=== PATIENT | female | born 1975 | race Caucasian/White ===

== ENCOUNTER 2018-11-30 07:34 | Observation (INO) ==
[2018-11-30] MEDS ORDERED: Isovue-370 500 ML BOTTLE IVP ONE (08:47)
[2018-11-30] MEDS ORDERED: Aspirin 81 MG TAB.CHEW PO ONE (08:49)
[2018-11-30] MEDS ORDERED: *HR* FentaNYL (PF) 100 MCG/2 ML VIAL IVP ONE (08:49)
[2018-11-30] MEDS ORDERED: Nitroglycerin 0.4 MG TAB.SUBL SL PRN (08:52)
--- NOTE | 2018-11-30 08:57 | Emergency Department Note ---
Disposition Clinical Impression: Cellulitis of right toe Chest pain Qualifiers: Chest pain type: unspecified Qualified Code(s): R07.9 - Chest pain, unspecified Headache Qualifiers: Headache type: unspecified Headache chronicity pattern: unspecified pattern Intractability: not intractable Qualified Code(s): R51 - Headache Disposition: Admitted As Inpatient Condition: Good Time of Disposition: 13:59 General Adult HPI - General Chief complaint: ED Extremity Problem,Nontraumatic Stated complaint: right toe problem, n/v Time Seen by Provider: 11/30/18 08:30 Source: patient, family Limitations: no limitations Nursing Notes Reviewed: Yes Vital Signs Reviewed: Yes - History of Present Illness HPI Narrative: Patient is a 43-year-old female with past medical history of hypertension, iron deficiency anemia, presenting with a chief complaint of right toe pain and chest pain. She states 5-6 years ago, she followed up with a brick burner head for ingrown toenails bilaterally. She has not followed up since. When an half weeks ago, she states her right toenail started to grow so she clipped it. One week ago, s he developed right toe swelling and redness. She also complains of right toe pain. For the past couple of days, she states the pain has been worsening and radiating into her right foot to the ankle. She states the redness and swelling is also worsening. There is also purulent drainage as well as some necrotic tissue where she clipped her toenail. Overnight, she complains of fevers and chills as well as nausea and several episodes of nonbilious nonbloody vomiting. She woke up this morning with chest pressure. She states her chest feels tight associated with some shortness of breath. She still felt nauseous. This gave her a headache as well. She feels like her chest and head are throbbing. She has never felt this before. Denies a cardiac history. She has been taking ibuprofen and Tylenol every 4 hours without improvement. Pain Scale: 7 - Related Data Home Medications Medication Instructions Recorded Confirmed Duloxetine HCl [Cymbalta] 60 mg PO DAILY 12/15/17 11/30/18 Estrogens, Conjugated [Premarin] 0.625 mg PO DAILY 12/15/17 11/30/18 Promethazine [Phenergan] 12.5 mg PO Q6HR PRN 12/15/17 11/30/18 Tizanidine HCl [Zanaflex] 4 mg PO TID PRN 12/15/17 11/30/18 amLODIPine [Norvasc] 5 mg PO DAILY 12/15/17 11/30/18 Loperamide [Imodium] 2 mg PO AD PRN 03/18/18 11/30/18 Baclofen 20 mg PO TID 06/17/18 11/30/18 Previous Rx's Medication Instructions Recorded Aspirin Enteric Coated [Aspirin EC] 81 mg PO DAILY #30 tablet. 11/30/18 Doxycycline Hyclate 100 mg PO BID #14 tablet 11/30/18 Allergies Allergy/AdvReac Type Severity Reaction Status Date / Time No Known Allergies Allergy Verified 11/30/18 07:37 All systems ED: reviewed and negative except as stated. Review of Systems: As Per HPI Constitutional: Reports: fever, chills Cardiovascular: Reports: chest pain. Denies: palpitations Respiratory: Reports: dyspnea. Denies: cough Gastrointestinal: Reports: abdominal pain, nausea, vomiting. Denies: diarrhea Genitourinary: Denies: dysuria Musculoskeletal: Reports: other (right toe pain) Integumentary: Reports: other (right toe drainage and erythema) Neurological: Reports: headache. Denies: weakness, numbness Past Medical History - Past Medical History Attestation: Yes The following information was validated with the patient. Source: patient Medical history: Reports: hypertension Psychiatric history: Reports: no psych history RETAIL REPRESENTATIVE history: Reports: no RETAIL REPRESENTATIVE history - Social History Smoking Status: Never smoker Smokeless Tobacco Status: No Alcohol use: Reports: none Drug use: Reports: none Physical Exam - General Limitations: no limitations General appearance: alert, in no apparent distress - Head Head exam: atraumatic, normocephalic - Eye Eye exam: Present: normal appearance, EOMI - ENT ENT exam: normal exam, normal oropharynx - Neck Neck exam: Present: normal inspection, trachea midline - Chest Chest inspection: Present: normal inspection, symmetric chest wall rise. Absent: tenderness - Respiratory Respiratory exam: Present: normal lung sounds bilaterally. Absent: respiratory distress, wheezes - Cardiovascular Cardiovascular exam: Present: regular rate, normal rhythm, normal heart sounds, other (bilateral radial pulses equal) - Abdominal Exam Abdominal exam: Present: soft, Non-Tender. Absent: distention - Extremities Exam Extremities exam: Present: normal capillary refill, other (No right toenail, necrotic tissue with purulent drainage on the distal portion of the right toe and the toenail bed with surrounding area of erythema and swelling to the right metatarsal, significant tenderness to palpation of the right toe and right foot, full range of motion). Absent: pedal edema - Neurological Exam Neurological exam: Present: alert, oriented X3. Absent: motor sensory deficit - Psychiatric Psychiatric exam: Present: normal affect, normal mood - Skin Skin exam: Present: warm. Absent: diaphoresis, pallor Course Vital Signs Temperature 98.0 F 11/30/18 07:35 Pulse Rate 70 11/30/18 07:35 Respiratory Rate 16 11/30/18 07:35 Blood Pressure 152/96 11/30/18 07:35 O2 Sat by Pulse Oximetry 97 11/30/18 07:35 Temperature 98.0 F 11/30/18 07:35 Pulse Rate 68 11/30/18 10:53 Respiratory Rate 16 11/30/18 10:53 Blood Pressure 168/107 11/30/18 10:53 O2 Sat by Pulse Oximetry 98 11/30/18 10:53 Oxygen Delivery Oxygen Delivery Room Air Medical Decision Making - MDM Narrative Medical decision making narrative: Patient is presenting with signs and symptoms concerning for right toe cellulitis. We will obtain CT with contrast of the right foot to evaluate for osteomyelitis. We will also obtain septic workup and check lactate, blood cult ures, CBC, BMP. We will give her fentanyl for pain. Patient is also complaining of chest pressure and tightness associated with shortness of breath and nausea and vomiting. She has history of hypertension, no family history of coronary artery disease. She has no history of stent placements. We will obtain troponin. We will give her aspirin and nitroglycerin. EKG shows dynamic changes compared to her old EKG. No ST elevation or depression. She will require admission for ACS evaluation. 11:00 CT of her foot shows no acute osseous abnormality. There is concern for osteo-, MRI may be helpful per radiology report. There is no fluid collection or abscess noted. Will give the patient Rocephin and vancomycin. Initial troponin is less than 0.03. Chest x-ray shows no acute cardiopulmonary abnormality. Patient had some improvement with the nitroglycerin with the chest pain however it did make her headache worse. Acetaminophen will be given. She will require admission for ACS workup as she does have EKG dynamic changes compared to her old EKG. 13:30 The patient was accepted by hospitalist for admission. He was advised the patient be admitted however the patient and her wanted to go home. Had a long conversation with the patient that it is our advice to be admitted. They then changed their mind that they wanted to be admitted for further cardiac workup and IV antibiotics for her right toe cellulitis. The patient remains stable and will be admitted for further ACS workup as well as management of her right toe cellulitis. - Medical Records Medical records reviewed: Yes I reviewed the patient's medical records. - Lab Data Lab results reviewed: Yes I reviewed the patient's lab results. Result diagrams: 11/30/18 09:00 11/30/18 09:00 Lab Results 11/30/18 11/30/18 11/30/18 Range/Units 09:00 09:00 09:00 WBC 5.0 (4.3-11.1) K/mcL RBC 4.68 (3.82-4.97) M/mcL Hgb 15.3 (11.5-15.4) g/dL Hct 45.1 H (35.3-44.9) % MCV 96.4 (83.0-100.0) fL MCH 32.7 (28.0-33.3) pg MCHC 33.9 (31.6-35.5) g/dL RDW 11.9 (11.5-14.5) % Plt Count 217 (140-400) K/mcL MPV 9.7 (9.4-12.4) fL Immature Gran % 0.2 (0-4) % Seg Neutrophils % 58.0 % Lymphocytes % 36.2 % Monocytes % 4.4 % Eosinophils % 0.8 % Basophils % 0.4 % Neutrophils # 2.9 (1.6-8.9) K/mcL Lymphocytes # 1.8 (0.6-4.6) K/mcL Monocytes # 0.2 (0.0-1.3) K/mcL Eosinophils # 0.0 (0.0-0.6) K/mcL Basophils # 0.0 (0.0-0.2) K/mcL Sodium 138 (136-145) mEq/L Potassium 3.8 (3.5-5.1) mEq/L Chloride 104 (98-107) mEq/L Carbon Dioxide 22 L (23-29) mEq/L BUN 9 (6-20) mg/dL Creatinine 0.60 (0.60-1.20) mg/dL Est GFR ( Amer) > 60 (> 60) Est GFR (Non-Af Amer) > 60 (> 60) BUN/Creatinine Ratio 15 (6-26) Glucose 97 (70-105) mg/dL Calculated Osmolality 285 (280-300) Lactic Acid 0.8 (0.5-2.2) mmol/L Calcium 11.4 H (8.6-10.3) mg/dL Total Bilirubin 0.4 (0.3-1.0) mg/dL Direct Bilirubin 0.1 (0.0-0.2) mg/dL Indirect Bilirubin 0.3 (0.0-1.2) mg/dL AST 22 (13-39) Units/L ALT 29 (7-52) Units/L Alkaline Phosphatase 105 H (34-104) Units/L Troponin I < 0.03 (< 0.04) ng/mL Serum Total Protein 9.1 H (6.4-8.9) g/dL Albumin 5.5 (3.5-5.7) g/dL Globulin 3.6 H (2.4-3.5) g/dL Albumin/Globulin Ratio 1.5 (1.1-2.2) - Radiology Data Radiology results reviewed: Yes I reviewed the patient's radiology results. Chest X-Ray 11/30/18 08:47 IMPRESSION: No acute cardiopulmonary process. D/ / Lesly Schulz MD / Lesly Schulz MD Interpreting Provider: Lesly Schulz MD Foot CT 11/30/18 08:47 IMPRESSION: No acute osseous abnormality. Evaluation is significantly limited by motion artifact in the region of the toes. If there is clinical concern for osteomyelitis, MRI would be helpful for further evaluation. D/ / 11/30/2018 10:37:31 Chris Lassiter MD / Joyce Rosario Interpreting Provider: Chris Lassiter MD - EKG Data EKG #1 EKG attestation: Yes I reviewed and interpreted this EKG. EKG results narrative: EKG obtained at 857 shows sinus rhythm with heart rate 65. She is abnormal R- wave progression. TX interval 140, QTC 455, QRS duration 100. T-wave inversion in V2 and V3. No ST elevation or depression. Compared to old EKG on the very 2017. T-wave inversion in V2 and V3 are new. Attestation Statement - Attestation Attestation: Patient was seen with resident physician. I reviewed the history, physical, assessment and plan, and agree with the findings. I also personally evaluated this patient and had [id number] time with this patient. 43-year-old female presents to the emergency department with 2 chief complaints. First is right great toe pain. Second is chest pressure. Patient states that she had her toenails removed a while back and she has not really had any issues. Friday she noticed O that something is growing manic attempted to cut it off and it resulted in increased redness and swelling with pain they tried some at home all natural remedies that were unsuccessful and ultimately she came in today. The other problem that she is having no chest pressure which she says she has never had before and started this morning is continuous it resulted in a headache it is the middle of the chest nonradiating. She said nothing in particular was made better or worse and no diaphoresis or sweating some mild nausea. Review of systems as above remainder negative. Physical exam vital signs are stable. ENT is unremarkable. Heart regular rhythm and rate. Lungs clear. Abdomen soft nontender. Extremities patient has infected right great toe. Neurologically intact. Skin no rashes. Psych normal. ED course. I we will do full cardiac workup also get a CT scan to rule out osteal in the foot. Patient will require hospitalization secondary to her chest pain. The story is very concerning for possible cardiac causes. Hemodynamically she remained stable in the emergency department. Workup was largely unremarkable. CT scan of the foot revealed no osteal. Cardiac workup is negative. Patient was slightly improved with nitroglycerin. Patient was somewhat hesitant to stay in the hospital but her symptoms of chest pain were very concerning. Eventually she agreed to stay for IV antibiotics as well as her chest pain workup. Hemodynamically she remained stable in the emergency department. I we spoke the hospitalist service agreed to accept the patient. Agree with resident physician assessment and plan.
[2018-11-30 09:13] LABS: Basophils % 0.4 %; Eosinophils % 0.8 %; Hematocrit 45.1 % (35.3-44.9); Hemoglobin 15.3 g/dL (11.5-15.4); Immature Granulocytes % 0.2 % (0-4); Lymphocytes # 1.8 K/mcL (0.6-4.6); Lymphocytes % 36.2 %; Mean Corpuscular HGB Conc 33.9 g/dL (31.6-35.5); Mean Corpuscular Hemoglobin 32.7 pg (28.0-33.3); Mean Corpuscular Volume 96.4 fL (83.0-100.0); Mean Platelet Volume 9.7 fL (9.4-12.4); Monocytes # 0.2 K/mcL (0.0-1.3); Monocytes % 4.4 %; Neutrophils # 2.9 K/mcL (1.6-8.9); Platelet Count 217 K/mcL (140-400); Red Blood Count 4.68 M/mcL (3.82-4.97); Red Cell Distribution Width 11.9 % (11.5-14.5)
[2018-11-30 09:33] LABS: Alanine Aminotransferase 29 Units/L (7-52); Albumin 5.5 g/dL (3.5-5.7); Albumin/Globulin Ratio 1.5 (1.1-2.2); Alkaline Phosphatase 105 Units/L (34-104); Aspartate Amino Transferase 22 Units/L (13-39); BUN/Creatinine Ratio 15 (6-26); Bilirubin,Direct 0.1 mg/dL (0.0-0.2); Bilirubin,Indirect 0.3 mg/dL (0.0-1.2); Bilirubin,Total 0.4 mg/dL (0.3-1.0); Blood Urea Nitrogen 9 mg/dL (6-20); Calcium 11.4 mg/dL (8.6-10.3); Carbon Dioxide 22 mEq/L (23-29); Chloride 104 mEq/L (98-107); Globulin 3.6 g/dL (2.4-3.5); Glucose 97 mg/dL (70-105); Osmolality,Calculated 285 (280-300); Potassium 3.8 mEq/L (3.5-5.1); Sodium 138 mEq/L (136-145); Total Protein 9.1 g/dL (6.4-8.9); Troponin I < 0.03 ng/mL (< 0.04); eGFR For Non-African Americans > 60 (> 60)
[2018-11-30] MEDS ORDERED: Acetaminophen 325 MG TABLET PO ONE (11:46)
[2018-11-30] MEDS ORDERED: *HR* HYDROcodone/Acet 5/325 mg TABLET PO PRN (12:05)
[2018-11-30] MEDS ORDERED: Naloxone 0.4 MG/ML INJ IVP PRN (12:05)
[2018-11-30] MEDS ORDERED: Ondansetron 4 MG/2 ML VIAL IVP PRN (12:05)
[2018-11-30] MEDS ORDERED: Acetaminophen 325 MG TABLET PO PRN (12:05)
[2018-11-30] MEDS ORDERED: tiZANidine 4 MG TABLET PO PRN (12:07)
[2018-11-30] MEDS ORDERED: cefTRIAXone 1,000 MG in 0.9 % Sodium Chloride Mini Bag 100 ML IVPB ONE (12:46)
[2018-11-30] MEDS ORDERED: Doxycycline 100 MG in 0.9 % Sodium Chloride Mini Bag 100 ML IVPB ONE (13:03)
--- NOTE | 2018-11-30 13:35 | Internal Med History&Physical ---
Date of Encounter: 11/30/18 Time of Encounter: 12:30 Internal Medicine - H&P: HPI Chief complaint: chest pain Admitted From: Emergency Dept Plans for Post Hospital Care: Home History of present illness: Ms. Rausch is a 43 year old female with known past medical history of hypertension and Iron def anemia patient was brought into the ER by family stating that she had chest pain this morning located sub sternal region, more like a pressure, radiated into her bilateral neck and 5/10 in severity. Later she developed nausea and worsening headache. Now she is more concerned about her headache. She denied any active chest pain now. Patient also mentioned she had ingrown toenail b/l which was removed 5 to 6 years ago, now she clipped a toe nail over Rt great toe 5 days ago since then she noticed small pimple like growth and developed open wound with serous discharge now. She did c/o Rt toe and foot pain. As per pt this is her main reason to come to the ER. She denied of using any abx as an out pt. Past Med Surg Social Fam HX - Past Medical History Medical history: hypertension Additional medical history: hypokalemia, back problems Psychiatric history: no psych history - Past Surgical History Additional surgical history: gastric surgery. back surgery - Social History Smoking Status: Never smoker Smokeless Tobacco Status: No Alcohol use: none Drug use: none - Additional Family History Additional family history: Family hsitory reviewed and non contribuitory to current problem. She denied any family history of cardiac problems Internal Medicine - H&P: Meds Duloxetine HCl [Cymbalta] 60 mg PO DAILY 12/15/17 [History] Estrogens, Conjugated [Premarin] 0.625 mg PO DAILY 12/15/17 [History] Promethazine [Phenergan] 12.5 mg PO Q6HR PRN 12/15/17 [History] Tizanidine HCl [Zanaflex] 4 mg PO TID PRN 12/15/17 [History] amLODIPine [Norvasc] 5 mg PO DAILY 12/15/17 [History] Loperamide [Imodium] 2 mg PO AD PRN 03/18/18 [History] Baclofen 20 mg PO TID 06/17/18 [History] Allergy/AdvReac Type Severity Reaction Status Date / Time No Known Allergies Allergy Verified 11/30/18 07:37 All Systems PM: A 10-system review of systems was performed and is negative for pertinent findings except as documented above in the HPI. Review of systems: All the systems are reviewed everything is benign except the systems and symptoms I mentioned in the history of present illness - Constitutional Vitals: Temp Pulse Resp BP Pulse Ox 98.0 F 68 16 168/107 98 11/30/18 07:35 11/30/18 10:53 11/30/18 10:53 11/30/18 10:53 11/30/18 10:53 General appearance: Present: cooperative, A&O X 3, no acute distress, answers questions appropriately Exam: a - Head Head exam: Present: atraumatic, normal inspection - Neck Neck exam general surgery: Present: supple - Respiratory Respiratory exam: Present: decreased breath sounds. Absent: rales, respiratory distress, rhonchi, wheezes - Cardiovascular Cardiovascular exam: Present: RRR, +S1, +S2. Absent: tachycardia - GI/Abdominal GI/Abdominal exam: Present: normal bowel sounds, soft. Absent: rebound, rigid, tenderness - Extremities Exam Extremities exam: Absent: calf tenderness, pedal edema, tenderness Additional comments: noticed 1 cm size scab over a ulcer on Rt great toe nail bed proximally. - Expanded Lower Extremities Exam Foot/Toe exam: Present: erythema, swelling (over Rt great toe nail bed), tenderness - Back Exam Back exam: Absent: CVA tenderness (L), CVA tenderness (R) - Neurological Exam Neurological exam: Present: alert, oriented X3 - Psychiatric Psychiatric exam: Present: normal affect, normal mood - Skin Skin exam: Present: rash Internal Med - H&P Results - Labs CBC & Chem 7: 11/30/18 09:00 11/30/18 09:00 Labs: Short CBC 11/30/18 Range/Units 09:00 WBC 5.0 (4.3-11.1) K/mcL Hgb 15.3 (11.5-15.4) g/dL Hct 45.1 H (35.3-44.9) % Plt Count 217 (140-400) K/mcL Neutrophils # 2.9 (1.6-8.9) K/mcL BMP 11/30/18 09:00 Sodium 138 Potassium 3.8 Chloride 104 Carbon Dioxide 22 L BUN 9 Creatinine 0.60 Glucose 97 Calcium 11.4 H Cardiac Enzymes 11/30/18 Range/Units 09:00 Troponin I < 0.03 (< 0.04) ng/mL Liver Function 11/30/18 Range/Units 09:00 Total Bilirubin 0.4 (0.3-1.0) mg/dL Direct Bilirubin 0.1 (0.0-0.2) mg/dL AST 22 (13-39) Units/L ALT 29 (7-52) Units/L Alkaline Phosphatase 105 H (34-104) Units/L Albumin 5.5 (3.5-5.7) g/dL - Impressions ITS Impressions Chest X-Ray 11/30/18 08:47 IMPRESSION: No acute cardiopulmonary process. D/ / Lesly Schulz MD / Lesly Schulz MD Interpreting Provider: Lesly Schulz MD Foot CT 11/30/18 08:47 IMPRESSION: No acute osseous abnormality. Evaluation is significantly limited by motion artifact in the region of the toes. If there is clinical concern for osteomyelitis, MRI would be helpful for further evaluation. D/ / 11/30/2018 10:37:31 Chris Lassiter MD / Joyce Rosario Interpreting Provider: Chris Lassiter MD - Assessment and Plan (1) Chest pain Current Visit: Yes Status: Acute Assessment and plan: Will admit the pt into Tele for observation Will place pt on compliance monitor check serial troponin so far negative troponin EKG reviewed - NSR, no ST, T changes noticed will start pt on ASA, Nitro PRN and Morphine IV PRN for pain Will check FLP in AM Pt would like to go home today if her repeat trop is negative. She would like to have further cardiac work up stress test as an out pt. Qualifiers: Chest pain type: unspecified Qualified Code(s): R07.9 - Chest pain, unspecified (2) Skin ulcer of right great toe Current Visit: Yes Status: Acute Assessment and plan: will do wound cx started her on empirical abx Doxy Need to f/u with [employer] [facility] as an out pt Qualifiers: Non-pressure ulcer stage: with fat layer exposed Qualified Code(s): L97.512 - Non-pressure chronic ulcer of other part of right foot with fat layer exposed (3) Iron deficiency anemia Current Visit: No Status: Chronic Assessment and plan: cont home med Qualifiers: Iron deficiency anemia type: unspecified iron deficiency Qualified Code(s): D50.9 - Iron deficiency anemia, unspecified (4) HTN (hypertension) Current Visit: Yes Status: Acute Assessment and plan: stable BP resumed home meds Qualifiers: Hypertension type: essential hypertension Qualified Code(s): I10 - Essential (primary) hypertension - Time Spent With Patient Total time spent is greater than 50% in coordination of care (as documented) at patient's floor/unit and/or counseling patient:
--- NOTE | 2018-11-30 13:55 | Discharge Summary ---
- NOTES TO OUTPATIENT PROVIDER Notes to Outpatient Provider: f/u with PCP in 3-5 days. If your chest pain persists, please come back to the ER , also ask your PCP to schedule for out pt stress test. Please f/u with [employer] as an out pt. Orders not resulted at time of discharge: Pending orders 11/30/18 08:47 ECG 12 lead ECG [ECG] Stat 11/30/18 09:35 Culture,Blood [BC] Stat 11/30/18 13:42 Culture,Anaerobic [RM] Routine Culture,Wound [RM] Routine 11/30/18 15:00 Troponin I Q6H 11/30/18 21:00 Troponin I Q6H 12/01/18 04:00 Basic Metabolic Panel AM 0400 Lipid Panel AM 0400 Date of Encounter: 11/30/18 Time of Encounter: 13:54 - Discharge Diagnosis (1) Chest pain Priority: Primary Status: Acute Qualifiers: Chest pain type: unspecified Qualified Code(s): R07.9 - Chest pain, unspecified (2) Skin ulcer of right great toe Priority: Primary Status: Acute Qualifiers: Non-pressure ulcer stage: with fat layer exposed Qualified Code(s): L97.512 - Non-pressure chronic ulcer of other part of right foot with fat layer exposed (3) Iron deficiency anemia Priority: Secondary Status: Chronic Qualifiers: Iron deficiency anemia type: unspecified iron deficiency Qualified Code(s): D50.9 - Iron deficiency anemia, unspecified (4) HTN (hypertension) Priority: Secondary Status: Acute Qualifiers: Hypertension type: essential hypertension Qualified Code(s): I10 - Essential (primary) hypertension Hospital course: Ms. Rausch is a 43 year old female with known past medical history of hypertension and Iron def anemia patient was brought into the ER by family stating that she had chest pain this morning located sub sternal region, more like a pressure, radiated into her bilateral neck and 5/10 in severity. Later she developed nausea and worsening headache. Now she is more concerned about her headache. She denied any active chest pain now. Patient also mentioned she had ingrown toenail b/l which was removed 5 to 6 years ago, now she clipped a toe nail over Rt great toe 5 days ago since then she noticed small pimple like growth and developed open wound with serous discharge now. She did c/o Rt great toe and foot pain. As per pt this is her main reason to come to the ER. She denied of using any abx as an out pt. She was admitted in the hospital and placed her on cage fighter. Her serial troponin x 2 came back as negative. EKG did not show any acute ischemic changes. Patient would like to have further cardiac workup such as stress test done as an outpatient. She would like to go home today. Will discharge him home in a stable condition today. Recommend to follow up with PCP as outpatient for possible stress test. Regarding her right great toe ulcer started her on oral doxycycline and recommend to follow up with the nail sticker as outpatient - Time Spent with Patient Total time spent providing and/or coordinating discharge services: - Discharge Medications Prescriptions: New Aspirin Enteric Coated [Aspirin EC] 81 mg PO DAILY #30 tablet. Doxycycline Hyclate 100 mg PO BID #14 tablet Continued Tizanidine HCl [Zanaflex] 4 mg PO TID PRN PRN Reason: Muscle Pain Estrogens, Conjugated [Premarin] 0.625 mg PO DAILY Promethazine [Phenergan] 12.5 mg PO Q6HR PRN PRN Reason: Nausea amLODIPine [Norvasc] 5 mg PO DAILY Duloxetine HCl [Cymbalta] 60 mg PO DAILY Loperamide [Imodium] 2 mg PO AD PRN PRN Reason: diarrhea Baclofen 20 mg PO TID Home Medications: Duloxetine HCl [Cymbalta] 60 mg PO DAILY 12/15/17 [History] Estrogens, Conjugated [Premarin] 0.625 mg PO DAILY 12/15/17 [History] Promethazine [Phenergan] 12.5 mg PO Q6HR PRN 12/15/17 [History] Tizanidine HCl [Zanaflex] 4 mg PO TID PRN 12/15/17 [History] amLODIPine [Norvasc] 5 mg PO DAILY 12/15/17 [History] Loperamide [Imodium] 2 mg PO AD PRN 03/18/18 [History] Baclofen 20 mg PO TID 06/17/18 [History] Aspirin Enteric Coated [Aspirin EC] 81 mg PO DAILY #30 tablet. 11/30/18 [Rx] Doxycycline Hyclate 100 mg PO BID #14 tablet 05/27/19 [Rx] Allergies/Adverse Reactions: Allergy/AdvReac Type Severity Reaction Status Date / Time No Known Allergies Allergy Verified 11/30/18 07:37 Date of admission: 11/30/18 11:00 Primary care physician: Du Bowling DO - Constitutional Vitals: Temp Pulse Resp BP Pulse Ox 98.0 F 68 16 168/107 98 11/30/18 07:35 11/30/18 10:53 11/30/18 10:53 11/30/18 10:53 11/30/18 10:53 General appearance: Present: cooperative, A&O X 3, no acute distress, answers questions appropriately Exam: Gen: Alert, awake, Oriented to time,place and person Chest: Diminished breath sounds B/L, No wheezing, No crackles, No rales Heart: S1S2+ RRR No murmurs Abd: Soft, NT, BS +, No organomegaly Ext: pulses are palpable, No calf tenderness, noticed 1 cm size scab over a ulcer on Rt great toe nail bed proximally. Neuro : Benign findings Skin: No rash. - Patient Status Disposition: Home, Self-Care Condition: Good Overall status at discharge: patient is back to baseline - Discharge Instructions Instructions: Doxycycline (By mouth), Chest Pain (DC) Follow Up With: Ramakrishna Saab DPM [Partnered Physician] - (appointment has been requested.) Du Bowling DO [Primary Care Provider] - - Diet and Activity Activity: increase activity as tolerated Diet: low salt diet
[2018-11-30] MEDS ORDERED: Baclofen 10 MG TABLET PO SCH (15:00)
[2018-11-30 16:08] VITALS: BP 145/91
[2018-12-01] MEDS ORDERED: Aspirin Enteric Coated 81 MG Tablet PO SCH (09:00)
[2018-12-01] MEDS ORDERED: amLODIPine 5 MG TABLET PO SCH (09:00)
--- NOTE | 2018-12-02 09:17 | Electrocardiograph Report ---
[address] [address] Test Date: 2018-11-30 Pat Name: Nadiya Rausch Department: [id number] Room: 3B46 Gender: F [employer]: : 1975 Requested By: Maki Gee Order Number: [id number] Reading MD: Carlton Valadez Measurements Intervals [place] Rate: 65 P: 23 VT: 140 QRS: -8 QRSD: 100 T: 4 QT: 437 QTc: 455 Interpretive Statements Sinus rhythm Abnormal R-wave progression, early transition Nonspecific repol abnormality, inferior leads Electronically Signed On 12-02-2018 9:16:08 EDT by Carlton Valadez
== END 2018-11-30 18:29 | disposition home or self-care (01) ==
LOC: EMEROOARM 07:34 → 3BNU 07:34
PROVIDERS: ADMIT Internal Medicine Nephrology; ATTEND Internal Medicine Nephrology